=== PATIENT | female | born 1935 | race Caucasian/White ===

== ENCOUNTER 2023-03-16 09:38 | Inpatient (IN) | payer OTHER ==
[~2023-03-16] VITALS: Ht 162.6 cm; Wt 70.3 kg
[2023-03-16 09:48] VITALS: BP_SYST 124; PULSE 65; RESP 18; TEMP 98.3; O2SAT 96
[2023-03-16 10:20] LABS: BASOPHILS % (AUTO) 0.3 % (0.0-2.0); EOSINOPHILS # (AUTO) 0.5 K/uL (0.0-0.4); EOSINOPHILS % (AUTO) 5.1 % (0.0-4.0); HEMOGLOBIN 11.3 g/dL (12.0-16.0); LYMPHOCYTES # (AUTO) 0.8 K/uL (1.0-5.5); LYMPHOCYTES % (AUTO) 9.2 % (20.5-51.5); MEAN CORPUSCULAR HEMOGLOBIN 29 pg (27-31); MEAN CORPUSCULAR HGB CONC 32 % (32-36); MEAN CORPUSCULAR VOLUME 91 fL (79.0-98.0); MONOCYTES # (AUTO) 1.1 K/uL (0.0-1.0); MONOCYTES % (AUTO) 12.3 % (1.7-9.3); NEUTROPHILS # (AUTO) 6.7 K/uL (1.8-7.7); NEUTROPHILS % (AUTO) 73.1 % (40.0-70.0); PLATELET COUNT (AUTO) 375 K/uL (130-430); RED BLOOD CELL COUNT(AUTO) 3.87 MIL/uL (4.2-6.2); RED CELL DISTRIBUTION WIDTH 12.9 % (9.0-15.0); WHITE BLOOD COUNT (AUTO) 9.2 K/uL (4.8-10.8)
[2023-03-16 10:44] LABS: ANION GAP 10 (5-15); CALCIUM 8.9 mg/dL (8.4-11.0); CARBON DIOXIDE 26 mmol/L (23-29); CHLORIDE 99 mmol/L (98-107); CREATININE 1.07 mg/dL (0.55-1.30); GLUCOSE 148 mg/dL (74-106); POTASSIUM 4.8 mmol/L (3.5-5.1); SODIUM SERUM 135 mmol/L (136-145); UREA NITROGEN, BLOOD 22 mg/dL (8-21)
[2023-03-16 10:47] LABS: ALANINE AMINOTRANSFERASE 21 U/L (12-78); ALBUMIN 3.6 g/dL (3.4-4.8); ASPARTATE AMINOTRANSFERASE 20 U/L (10-37); CREATINE KINASE, TOTAL 36 U/L (26-192); SALICYLATE 2 mg/dL (3-30); TOTAL BILIRUBIN 0.5 mg/dL (0.0-1.0); TOTAL PROTEIN, SERUM 7.7 g/dL (6.4-8.3)
[2023-03-16 10:49] LABS: ACETAMINOPHEN < 1 ug/mL (1-30); ALCOHOL, BLOOD < 3 mg/dL (<10)
[2023-03-16 11:16] LABS: BILIRUBIN,URINE NEGATIVE (NEGATIVE); BLOOD, URINE NEGATIVE (NEGATIVE); CLARITY/URINE Clear (CLEAR); COLOR,URINE YELLOW (YELLOW); GLUCOSE,URINE NEGATIVE (NEGATIVE); KETONES,URINE NEGATIVE (NEGATIVE); LEUKOCYTE ESTERASE ,URINE NEGATIVE (NEGATIVE); NITRITE, URINE NEGATIVE (NEGATIVE); PH,URINE 5.5 (5.0-8.0); PROTEIN URINE NEGATIVE (NEGATIVE); UROBILINOGEN,URINE 0.2 (0.2-1.0)
[2023-03-16] MEDS ORDERED: NACL 0.9% 1,000 ML IV ONE (12:00)
[2023-03-16] MEDS ORDERED: LOP600 PO (12:14)
[2023-03-16] MEDS ORDERED: MULT-1159 (12:14)
[2023-03-16] MEDS ORDERED: POTA-197 PO (12:14)
[2023-03-16] MEDS ORDERED: NEU300 PO (12:14)
[2023-03-16] MEDS ORDERED: CALTRATE (12:14)
[2023-03-16] MEDS ORDERED: INSU100V11 SQ (12:14)
[2023-03-16] MEDS ORDERED: LORA-259 PO (12:14)
[2023-03-16] MEDS ORDERED: SIMV-341 PO (12:14)
[2023-03-16] MEDS ORDERED: PRO40 PO (12:14)
[2023-03-16] MEDS ORDERED: VITD400 PO (12:14)
[2023-03-16] MEDS ORDERED: OMEG10006 PO (12:14)
[2023-03-16] MEDS ORDERED: AMLO5TAB4 PO (12:14)
[2023-03-16] MEDS ORDERED: INSU100V SUBCUT (12:14)
[2023-03-16] MEDS ORDERED: BENA40TA89 PO (12:14)
[2023-03-16] MEDS ORDERED: ESCI20TA PO (12:14)
[2023-03-16] MEDS ORDERED: ASCO500T20 PO (12:14)
[2023-03-16] MEDS ORDERED: NYSTOP (12:14)
[2023-03-16] MEDS ORDERED: INSULIN REGULAR, HUMAN 100 UNITS/ML, 3 ML VIAL (humuLIN R) SUBCUT PRN (14:45)
[2023-03-16] MEDS: OMEGA-3/DHA/EPA/FISH OIL 1 GM CAPSULE PO SCH ×2 (17:34→21:41)
[2023-03-16] MEDS: GEMFIBROZIL 600 MG TABLET (LOPID) PO SCH (21:41)
[2023-03-16] MEDS: LORazepam 1 MG TABLET PO SCH (21:42)
[2023-03-16] MEDS: GABAPENTIN 300 MG CAPSULE PO SCH (21:42)
[2023-03-16] MEDS: SIMVASTATIN 10 MG TABLET PO SCH (21:52)
[2023-03-16 23:32] VITALS: BP_SYST 123; PULSE 62; RESP 16; TEMP 98.8
[2023-03-17 00:10] VITALS: BP_SYST 120; PULSE 60; RESP 16; TEMP 98.4; O2SAT 97
[2023-03-17 08:00] VITALS: O2SAT 99
[2023-03-17] MEDS: POTASSIUM CHLORIDE 20 MEQ TAB.PRT.SR PO SCH (08:46)
[2023-03-17] MEDS: GABAPENTIN 300 MG CAPSULE PO SCH ×2 (08:47→21:19)
[2023-03-17] MEDS: CHOLECALCIFEROL (VITAMIN D-3) 400 UNIT TABLET PO SCH (08:47)
[2023-03-17] MEDS: ASCORBIC ACID 500 MG TABLET PO SCH (08:47)
[2023-03-17] MEDS: PANTOPRAZOLE SODIUM 40 MG TAB PO SCH (08:47)
[2023-03-17] MEDS: OMEGA-3/DHA/EPA/FISH OIL 1 GM CAPSULE PO SCH ×3 (08:48→21:19)
[2023-03-17] MEDS: CITALOPRAM HYDROBROMIDE 20 MG TABLET PO SCH (08:48)
[2023-03-17] MEDS: LORazepam 1 MG TABLET PO SCH ×2 (08:48→21:19)
[2023-03-17] MEDS: GEMFIBROZIL 600 MG TABLET (LOPID) PO SCH ×2 (08:48→21:19)
[2023-03-17] MEDS: ENOXAPARIN SODIUM 40 MG/0.4 ML SYRINGE SUBCUT SCH (08:49)
[2023-03-17] MEDS: lisinopriL 20 MG TABLET PO SCH (08:50)
[2023-03-17] MEDS: amLODIPine BESYLATE 5 MG TABLET PO SCH (08:51)
[2023-03-17] MEDS: INSULIN GLARGINE 100 UNITS/ML, 10 ML VIAL SUBCUT SCH (08:53)
[2023-03-17 12:00] VITALS: BP_SYST 122; PULSE 64; RESP 14; TEMP 98.3; O2SAT 99
[2023-03-17 16:00] VITALS: BP_SYST 128; PULSE 68; RESP 15; TEMP 98; O2SAT 99
[2023-03-17 20:00] VITALS: BP_SYST 107; PULSE 75; RESP 18; TEMP 97.7; O2SAT 100; O2SAT 99
[2023-03-17] MEDS: SIMVASTATIN 10 MG TABLET PO SCH (21:19)
[2023-03-18] VITALS (7 sets, daily range): BP systolic 117–147; PULSE 53–98; RESP 16–18; TEMP 97–98.1; O2SAT 97–100
[2023-03-18] MEDS: lisinopriL 20 MG TABLET PO SCH (11:14)
[2023-03-18] MEDS: ASCORBIC ACID 500 MG TABLET PO SCH (11:14)
[2023-03-18] MEDS: PANTOPRAZOLE SODIUM 40 MG TAB PO SCH (11:15)
[2023-03-18] MEDS: GABAPENTIN 300 MG CAPSULE PO SCH ×2 (11:15→20:22)
[2023-03-18] MEDS: CITALOPRAM HYDROBROMIDE 20 MG TABLET PO SCH (11:15)
[2023-03-18] MEDS: amLODIPine BESYLATE 5 MG TABLET PO SCH (11:16)
[2023-03-18] MEDS: CHOLECALCIFEROL (VITAMIN D-3) 400 UNIT TABLET PO SCH (11:16)
[2023-03-18] MEDS: LORazepam 1 MG TABLET PO SCH ×2 (11:16→20:23)
[2023-03-18] MEDS: GEMFIBROZIL 600 MG TABLET (LOPID) PO SCH ×2 (11:16→20:23)
[2023-03-18] MEDS: POTASSIUM CHLORIDE 20 MEQ TAB.PRT.SR PO SCH (11:17)
[2023-03-18] MEDS: INSULIN GLARGINE 100 UNITS/ML, 10 ML VIAL SUBCUT SCH (11:18)
[2023-03-18] MEDS: ENOXAPARIN SODIUM 40 MG/0.4 ML SYRINGE SUBCUT SCH (11:19)
[2023-03-18] MEDS: OMEGA-3/DHA/EPA/FISH OIL 1 GM CAPSULE PO SCH ×3 (11:20→20:23)
[2023-03-18] MEDS: SIMVASTATIN 10 MG TABLET PO SCH (20:23)
[2023-03-19 00:53] VITALS: BP_SYST 136; PULSE 66; RESP 18; TEMP 98.4; O2SAT 99
[2023-03-19 08:16] VITALS: BP_SYST 118; PULSE 72; RESP 18; TEMP 97.7; O2SAT 95
[2023-03-19] MEDS: ENOXAPARIN SODIUM 40 MG/0.4 ML SYRINGE SUBCUT SCH (08:55)
[2023-03-19] MEDS: POTASSIUM CHLORIDE 20 MEQ TAB.PRT.SR PO SCH (08:55)
[2023-03-19] MEDS: lisinopriL 20 MG TABLET PO SCH (08:56)
[2023-03-19] MEDS: PANTOPRAZOLE SODIUM 40 MG TAB PO SCH (08:57)
[2023-03-19] MEDS: GABAPENTIN 300 MG CAPSULE PO SCH (08:57)
[2023-03-19] MEDS: ASCORBIC ACID 500 MG TABLET PO SCH (08:57)
[2023-03-19] MEDS: CITALOPRAM HYDROBROMIDE 20 MG TABLET PO SCH (08:58)
[2023-03-19] MEDS: GEMFIBROZIL 600 MG TABLET (LOPID) PO SCH (08:58)
[2023-03-19] MEDS: CHOLECALCIFEROL (VITAMIN D-3) 400 UNIT TABLET PO SCH (08:58)
[2023-03-19] MEDS: OMEGA-3/DHA/EPA/FISH OIL 1 GM CAPSULE PO SCH ×2 (09:00→15:16)
[2023-03-19] MEDS: LORazepam 1 MG TABLET PO SCH (09:00)
[2023-03-19] MEDS: amLODIPine BESYLATE 5 MG TABLET PO SCH (09:01)
[2023-03-19] MEDS: INSULIN GLARGINE 100 UNITS/ML, 10 ML VIAL SUBCUT SCH (09:05)
[2023-03-19 10:01] VITALS: O2SAT 96
[2023-03-19 12:00] VITALS: BP_SYST 103; PULSE 62; RESP 18; TEMP 97.7; O2SAT 96
[2023-03-19 12:42] VITALS: BP_SYST 112; PULSE 72; RESP 18; TEMP 97.7
[2023-03-19 16:00] VITALS: BP_SYST 88; PULSE 56; RESP 18; TEMP 97.9; O2SAT 96
== END 2023-03-19 21:18 | DRG 74 ==
LOC: SED 09:38 → SMU 11:57
PROVIDERS: ADMIT Family Medicine; ATTEND Family Medicine
DX: E11.42 Type 2 diabetes mellitus with diabetic polyneuropathy (principal); M54.16 Radiculopathy, lumbar region; I10 Essential (primary) hypertension; M17.0 Bilateral primary osteoarthritis of knee; Z96.653 Presence of artificial knee joint, bilateral; E78.5 Hyperlipidemia, unspecified
CPT/HCPCS: 36415; 70450-TC; 71045; 76376; 80053; 81003; 82550; 82962; 83605; 85025; 93005; 96360; 97110-GP; 97530-GP; 99285; G0480; G0481; G0482; J1650; J1815